=== PATIENT | female | born 1945 | race Caucasian/White ===

== ENCOUNTER → 2018-05-14 | Outpatient (CLI) | payer OTHER ==
[2018-05-14 11:20] LABS: ABSOLUTE BASOPHILS 0.1 thou/uL (0.0-0.2); ABSOLUTE EOSINOPHILS 0.2 thou/uL (0.0-0.7); ABSOLUTE LYMPHOCYTES 1.2 thou/uL (0.8-5.3); ABSOLUTE MONOCYTES 0.9 thou/uL (0.0-1.2); ABSOLUTE NEUTROPHILS 5.9 thou/uL (1.6-8.1); EOSINOPHILS 2.7 %; HEMATOCRIT 35.5 % (37.0-47.0); HEMOGLOBIN 10.9 gm/dL (12.0-15.0); MCH 24.4 pg (26.0-34.0); MCHC 30.6 g/dL (28.0-37.0); MCV 79.7 fL (80.0-100.0); MONOCYTES 10.6 %; MPV 7.1 fl. (7.2-11.1); NUCLEATED RBCS 0 /100WBC; PLATELET COUNT* 274 thou/uL (150-400); POLYS 71.7 %; RBC 4.46 mil/uL (4.20-5.00); RDW-CV 27.1 % (10.5-14.5); WBC 8.3 thou/uL (4.0-11.0)
[2018-05-14 11:49] LABS: ALBUMIN 3.1 g/dL (3.4-5.0); CALCIUM 8.6 mg/dL (8.5-10.1); CREATININE 1.3 mg/dL (0.6-1.3); POTASSIUM 4.2 mmol/L (3.5-5.1); TOTAL BILIRUBIN 0.3 mg/dL (<0.1-1.0); TOTAL PROTEIN 6.8 g/dL (6.4-8.2)
[2018-05-14 11:55] LABS: ANISOCYTOSIS 3+; PLATELET ESTIMATE ADEQUATE
[2018-05-14 11:56] LABS: HYPOCHROMASIA 1+
[2018-05-14 11:57] LABS: MICROCYTES 2+; OVALOCYTES 1+
[2018-05-14 12:32] LABS: ESR (SEDRATE) 30 mm/hr (0-30)
== END ==
LOC: M.LAB 10:58
PROVIDERS: Internal Medicine Rheumatology
DX: M05.89 Other rheumatoid arthritis with rheumatoid factor of multiple sites (principal); Z79.899 Other long term (current) drug therapy

== ENCOUNTER → 2018-05-25 | Outpatient (CLI) | payer OTHER ==
[2018-05-25 12:28] LABS: ABSOLUTE EOSINOPHILS 0.2 thou/uL (0.0-0.7); ABSOLUTE MONOCYTES 0.6 thou/uL (0.0-1.2); ABSOLUTE NEUTROPHILS 5.4 thou/uL (1.6-8.1); BASOPHILS 0.7 %; EOSINOPHILS 2.6 %; HEMATOCRIT 32.9 % (37.0-47.0); HEMOGLOBIN 10.3 gm/dL (12.0-15.0); LYMPHOCYTES 13.3 %; MCH 25.2 pg (26.0-34.0); MCHC 31.2 g/dL (28.0-37.0); MCV 80.8 fL (80.0-100.0); MONOCYTES 8.7 %; MPV 7.2 fl. (7.2-11.1); NUCLEATED RBCS 0 /100WBC; PLATELET COUNT* 226 thou/uL (150-400); POLYS 74.7 %; RBC 4.07 mil/uL (4.20-5.00); RDW-CV 25.9 % (10.5-14.5); WBC 7.3 thou/uL (4.0-11.0)
[2018-05-25 13:01] LABS: ALBUMIN 2.9 g/dL (3.4-5.0); CALCIUM 8.2 mg/dL (8.5-10.1); CREATININE 1.3 mg/dL (0.6-1.3); POTASSIUM 4.2 mmol/L (3.5-5.1); TOTAL BILIRUBIN 0.3 mg/dL (<0.1-1.0); TOTAL PROTEIN 6.4 g/dL (6.4-8.2)
[2018-05-25 13:19] LABS: PLATELET ESTIMATE ADEQUATE
[2018-05-25 13:20] LABS: HYPOCHROMASIA 1+; OVALOCYTES 2+; SCHISTOCYTES Occasional; TEARDROPS Occasional
[2018-05-25 13:21] LABS: ANISOCYTOSIS 2+; MACROCYTES Occasional; MICROCYTES Occasional; POIKILOCYTOSIS 2+
[2018-05-25 13:51] LABS: ESR (SEDRATE) 43 mm/hr (0-30)
== END ==
LOC: M.LAB 12:12
PROVIDERS: Internal Medicine Gastroenterology
DX: D50.9 Iron deficiency anemia, unspecified (principal); Z87.891 Personal history of nicotine dependence; Z85.3 Personal history of malignant neoplasm of breast

== ENCOUNTER → 2018-07-13 | Outpatient (CLI) | payer OTHER ==
[2018-07-13 13:42] LABS: HEMATOCRIT 35.9 % (37.0-47.0); HEMOGLOBIN 11.2 gm/dL (12.0-15.0); MCH 26.8 pg (26.0-34.0); MCHC 31.4 g/dL (28.0-37.0); MCV 85.6 fL (80.0-100.0); MPV 7.5 fl. (7.2-11.1); NUCLEATED RBCS 0 /100WBC; PLATELET COUNT* 285 thou/uL (150-400); RBC 4.19 mil/uL (4.20-5.00); RDW-CV 21.1 % (10.5-14.5); WBC 7.4 thou/uL (4.0-11.0)
[2018-07-13 13:50] LABS: CALCIUM 8.4 mg/dL (8.5-10.1); CREATININE 1.1 mg/dL (0.6-1.3); POTASSIUM 3.3 mmol/L (3.5-5.1)
[2018-07-13 14:40] LABS: ABSOLUTE EOSINOPHILS 0.1 thou/uL (0.0-0.7); ABSOLUTE LYMPHOCYTES 1.2 thou/uL (0.8-5.3); ABSOLUTE MONOCYTES 0.7 thou/uL (0.0-1.2); ABSOLUTE NEUTROPHILS 5.3 thou/uL (1.6-8.1)
[2018-07-13 14:41] LABS: ANISOCYTOSIS 2+
[2018-07-13 14:42] LABS: PLATELET ESTIMATE ADEQUATE
[2018-07-13 14:51] LABS: ESR (SEDRATE) 43 mm/hr (0-30)
== END ==
LOC: M.LAB 13:05
PROVIDERS: Internal Medicine Gastroenterology
DX: I48.0 Paroxysmal atrial fibrillation (principal); D50.9 Iron deficiency anemia, unspecified; Z79.01 Long term (current) use of anticoagulants

== ENCOUNTER → 2018-09-14 | Outpatient (CLI) | payer OTHER ==
[2018-09-14 14:52] LABS: ABSOLUTE BASOPHILS 0.1 thou/uL (0.0-0.2); ABSOLUTE EOSINOPHILS 0.2 thou/uL (0.0-0.7); ABSOLUTE LYMPHOCYTES 1.3 thou/uL (0.8-5.3); ABSOLUTE MONOCYTES 1.1 thou/uL (0.0-1.2); ABSOLUTE NEUTROPHILS 6.5 thou/uL (1.6-8.1); BASOPHILS 0.7 %; EOSINOPHILS 2.6 %; HEMOGLOBIN 11.1 gm/dL (12.0-15.0); MCH 27.6 pg (26.0-34.0); MCHC 31.7 g/dL (28.0-37.0); MCV 87.2 fL (80.0-100.0); MONOCYTES 11.7 %; MPV 7.2 fl. (7.2-11.1); NUCLEATED RBCS 0 /100WBC; PLATELET COUNT* 257 thou/uL (150-400); RBC 4.01 mil/uL (4.20-5.00); RDW-CV 19.3 % (10.5-14.5); WBC 9.2 thou/uL (4.0-11.0)
[2018-09-14 15:55] LABS: ESR (SEDRATE) 36 mm/hr (0-30)
== END ==
LOC: M.LAB 14:31
PROVIDERS: Internal Medicine Gastroenterology
DX: D50.9 Iron deficiency anemia, unspecified (principal)

== ENCOUNTER → 2018-11-11 | Outpatient (CLI) | payer OTHER ==
[2018-11-11 11:47] LABS: ABSOLUTE BASOPHILS 0.1 thou/uL (0.0-0.2); ABSOLUTE EOSINOPHILS 0.1 thou/uL (0.0-0.7); ABSOLUTE LYMPHOCYTES 0.7 thou/uL (0.8-5.3); ABSOLUTE MONOCYTES 0.6 thou/uL (0.0-1.2); ABSOLUTE NEUTROPHILS 4.5 thou/uL (1.6-8.1); EOSINOPHILS 1.9 %; HEMOGLOBIN 10.3 gm/dL (12.0-15.0); LYMPHOCYTES 11.3 %; MCH 27.9 pg (26.0-34.0); MCV 87.1 fL (80.0-100.0); MONOCYTES 10.5 %; NUCLEATED RBCS 0 /100WBC; PLATELET COUNT* 282 thou/uL (150-400); POLYS 75.3 %; RBC 3.67 mil/uL (4.20-5.00); RDW-CV 18.9 % (10.5-14.5)
[2018-11-11 12:07] LABS: CREATININE 2.2 mg/dL (0.6-1.3); DIRECT BILIRUBIN 0.1 mg/dL (<0.1-0.3); TOTAL BILIRUBIN 0.4 mg/dL (<0.1-1.0); TOTAL PROTEIN 6.7 g/dL (6.4-8.2)
== END ==
LOC: M.LAB 11:30
PROVIDERS: Internal Medicine Rheumatology
DX: Z79.899 Other long term (current) drug therapy (principal)

== ENCOUNTER → 2019-05-17 | Outpatient (CLI) | payer OTHER ==
[2019-05-17 09:46] LABS: ABSOLUTE BASOPHILS 0.1 thou/uL (0.0-0.2); ABSOLUTE EOSINOPHILS 0.2 thou/uL (0.0-0.7); ABSOLUTE LYMPHOCYTES 0.8 thou/uL (0.8-5.3); ABSOLUTE MONOCYTES 0.3 thou/uL (0.0-1.2); ABSOLUTE NEUTROPHILS 6.1 thou/uL (1.6-8.1); BASOPHILS 0.8 %; EOSINOPHILS 2.5 %; HEMATOCRIT 36.4 % (37.0-47.0); HEMOGLOBIN 11.5 gm/dL (12.0-15.0); LYMPHOCYTES 10.8 %; MCH 26.8 pg (26.0-34.0); MCHC 31.5 g/dL (28.0-37.0); MCV 84.8 fL (80.0-100.0); MONOCYTES 3.5 %; MPV 7.4 fl. (7.2-11.1); NUCLEATED RBCS 0 /100WBC; PLATELET COUNT* 237 thou/uL (150-400); POLYS 82.4 %; RBC 4.29 mil/uL (4.20-5.00); RDW-CV 21.6 % (10.5-14.5); WBC 7.5 thou/uL (4.0-11.0)
[2019-05-17 10:06] LABS: ALBUMIN 3.3 g/dL (3.4-5.0); CREATININE 1.4 mg/dL (0.6-1.3); POTASSIUM 4.4 mmol/L (3.5-5.1); TOTAL BILIRUBIN 0.4 mg/dL (<0.1-1.0); TOTAL PROTEIN 7.2 g/dL (6.4-8.2)
[2019-05-17 10:09] LABS: ANISOCYTOSIS 2+; PLATELET ESTIMATE ADEQUATE
== END ==
LOC: M.LAB 09:27
PROVIDERS: Nurse Practitioner Adult Health
DX: D50.9 Iron deficiency anemia, unspecified (principal)

== ENCOUNTER → 2019-10-16 | Outpatient (CLI) | payer OTHER ==
[2019-10-16 14:50] LABS: ABSOLUTE EOSINOPHILS 0.1 thou/uL (0.0-0.7); ABSOLUTE MONOCYTES 0.7 thou/uL (0.0-1.2); ABSOLUTE NEUTROPHILS 4.6 thou/uL (1.6-8.1); BASOPHILS 0.3 %; EOSINOPHILS 2.3 %; HEMATOCRIT 40.6 % (37.0-47.0); HEMOGLOBIN 13.4 gm/dL (12.0-15.0); LYMPHOCYTES 15.8 %; MCH 29.2 pg (26.0-34.0); MCHC 33.1 g/dL (28.0-37.0); MCV 88.2 fL (80.0-100.0); MONOCYTES 10.2 %; MPV 6.6 fl. (7.2-11.1); NUCLEATED RBCS 0 /100WBC; PLATELET COUNT* 199 thou/uL (150-400); POLYS 71.4 %; RBC 4.61 mil/uL (4.20-5.00); WBC 6.4 thou/uL (4.0-11.0)
[2019-10-16 15:36] LABS: CALCIUM 8.6 mg/dL (8.5-10.1); CREATININE 1.5 mg/dL (0.6-1.3); POTASSIUM 4.3 mmol/L (3.5-5.1)
== END ==
LOC: M.LAB 14:33
PROVIDERS: Internal Medicine
DX: I48.0 Paroxysmal atrial fibrillation (principal)

== ENCOUNTER → 2021-04-25 | Outpatient (CLI) | payer OTHER | LOC: M.MRI 12:46 | PROVIDERS: ATTEND Family Medicine | DX: G93.89 Other specified disorders of brain (principal); I67.82 Cerebral ischemia; G45.9 Transient cerebral ischemic attack, unspecified ==